=== PATIENT | male | born 1995 | race Caucasian/White ===

== ENCOUNTER 2017-03-24 12:04 | Emergency (ER) | payer BC ==
[~2017-03-24] VITALS: Ht 182.9 cm; Wt 79.4 kg
[2017-03-24 12:06] VITALS: BP 143/83; PULSE 83; RESP 16; TEMP 97.6; O2SAT 99
[2017-03-24 12:43] LABS: BASOPHILS % (AUTO) 0.8 % (0.0-2.0); EOSINOPHILS # (AUTO) 0.2 K/uL (0.0-0.4); EOSINOPHILS % (AUTO) 3.3 % (0.0-4.0); HEMATOCRIT 46.7 % (36-54); HEMOGLOBIN 15.5 g/dL (14.0-18.0); LYMPHOCYTES % (AUTO) 39.8 % (20.5-51.5); MEAN CORPUSCULAR HEMOGLOBIN 31 pg (27-31); MEAN CORPUSCULAR HGB CONC 33 % (32-36); MEAN CORPUSCULAR VOLUME 93 fL (79.0-98.0); MONOCYTES # (AUTO) 0.3 K/uL (0.0-1.0); MONOCYTES % (AUTO) 6.9 % (1.7-9.3); NEUTROPHILS # (AUTO) 2.4 K/uL (1.8-7.7); NEUTROPHILS % (AUTO) 49.2 % (40.0-70.0); PLATELET COUNT (AUTO) 277 K/uL (130-430); RED BLOOD CELL COUNT(AUTO) 5.04 MIL/uL (4.2-6.2); RED CELL DISTRIBUTION WIDTH 12.6 % (9.0-15.0); WHITE BLOOD COUNT (AUTO) 4.9 K/uL (4.8-10.8)
[2017-03-24 13:01] LABS: CALCIUM 9.6 mg/dL (8.4-11.0); CREATININE 1.1 mg/dL (0.55-1.30); POTASSIUM 4.5 mmol/L (3.5-5.1)
[2017-03-24 13:06] LABS: ALBUMIN 4.2 g/dL (3.4-4.8); TOTAL PROTEIN, SERUM 7.2 g/dL (6.4-8.3)
--- NOTE | 2017-03-24 13:18 | NUR ---
Patient to ER bed 5 to gown for evaluation. Side rails up. Report given to Harriet VELAZQUEZ.
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
--- NOTE | 2017-03-24 13:21 | NUR ---
ER Dr. Trammell at bedside examining patient.
--- NOTE | 2017-03-24 13:40 | NUR ---
Patient given written and verbal discharge instructions and verbalizes understanding. ER MD discussed with patient the results and treatment provided. Patient in stable condition. ID arm band removed. Patient educated on pain management and to follow up with PMD. Pain Scale 3/10. Opportunity for questions provided and answered.
== END 2017-03-24 13:40 | disposition home or self-care (01) ==
LOC: SED 12:04
DX: R07.9 Chest pain, unspecified (principal)
CPT/HCPCS: 36415; 71250-TC; 80053; 83880; 84484; 85025; 85379; 93005; 99285